=== PATIENT | female | born 1970 | race Caucasian/White ===

== ENCOUNTER → 2019-03-12 | Outpatient (CLI) | payer BC ==
--- NOTE | 2019-03-12 16:57 | XR ---
Lumbosacral spine HISTORY: Right leg and foot numbness 5 views of the lumbosacral spine No evident spondylolysis or spondylolisthesis. There is multilevel spondylosis. Loss of disc height p resent at L5-S1. Lumbar vertebral bodies show preserved height and bone mineralization. There are art ifacts over the exam. IMPRESSION: Degenerative disc disease.
== END | disposition home or self-care (01) ==
LOC: RADXRYALE 13:58
PROVIDERS: ATTEND Internal Medicine
DX: M51.36 Other intervertebral disc degeneration, lumbar region (principal)
CPT/HCPCS: 72110